=== PATIENT | male | born 1975 | race Caucasian/White ===

== ENCOUNTER 2019-03-31 17:36 | Emergency (ER) | payer OTHER ==
[~2019-03-31] VITALS: Ht 175.3 cm; Wt 106.6 kg
[2019-03-31 18:25] LABS: ABSOLUTE NEUTROPHILS 7.6 thou/uL (1.4-8.2); BASOPHILS 0.3 % (0.0-2.0); HEMATOCRIT 43.8 % (42.0-52.0); HEMOGLOBIN 14.7 gm/dL (14.0-18.0); LYMPHOCYTES 14.9 % (24.0-44.0); MCH 29.6 pg (26.0-34.0); MCHC 33.5 g/dL (28.0-37.0); MCV 88.4 fL (80.0-100.0); MONOCYTES 4.9 % (1.0-8.0); PLATELET COUNT 239 thou/uL (150-400); POLYS 78.9 % (36.0-66.0); RBC 4.96 mil/uL (4.50-6.00); WBC 9.6 thou/uL (4.0-11.0)
[2019-03-31 18:28] LABS: CALCIUM 9.1 mg/dL (8.5-10.1); CREATININE 0.9 mg/dL (0.7-1.3)
[2019-03-31 18:34] LABS: ALBUMIN 3.6 g/dL (3.4-5.0); MAGNESIUM 2.2 mg/dL (1.8-2.4); TOTAL BILIRUBIN 0.3 mg/dL (<0.1-1.0); TOTAL PROTEIN 7.5 g/dL (6.4-8.2)
[2019-03-31 20:30] VITALS: BP 128/73
--- NOTE | 2019-04-02 13:10 | EKG ---
[address] [place] [address] ELECTROCARDIOGRAM REPORT Name: NATASHA HDEZ [facility] [id number] Admission: 03/31/19 Attend Phys: Discharge: 03/31/19 Date of : 79 Report #: [id number] THIS REPORT FOR: //name// [facility] ED Test Date: 2019-03-31 Test Time: 18:38:00 Pat Name: NATASHA HDEZ Department: Room: Gender: M Research & Analytics Manager: [id number] : 1975 Requested By: Nader Paul Order Number: [id number] MD: Trae Levine Measurements Intervals Emerson Rate: 82 P: -17 VA: 173 QRS: -3 QRSD: 97 T: 9 QT: 376 QTc: 439 Interpretive Statements Sinus rhythm No significant abnormality No previous ECG available for comparison Electronically Signed On 04-02-2019 13:10:13 EQUIPMENT MAINTENANCE SUPERINTENDENT by Trae Levine [email or web address] <ELECTRONICALLY SIGNED> By: Trae Levine MD, [facility] 04/02/19 1310 1838 1838 Trae Levine MD, FACC /EPI
== END 2019-03-31 20:30 | disposition home or self-care (01) ==
LOC: ER 17:36
PROVIDERS: Nurse Practitioner Family
DX: S93.401A Sprain of unspecified ligament of right ankle, initial encounter (principal); R56.9 Unspecified convulsions; Z88.0 Allergy status to penicillin; X50.1XXA Overexertion from prolonged static or awkward postures, initial encounter; Y93.89 Activity, other specified; Y92.89 Other specified places as the place of occurrence of the external cause; Y99.8 Other external cause status